=== PATIENT | female | born 1965 | race Caucasian/White ===

== ENCOUNTER → 2016-05-17 | Outpatient (CLI) | payer BC ==
[~2016-05-17] MED LIST: METOPROLOL SUC100 M1 PO
== END ==
LOC: LAB 07:56
DX: Z72.0 Tobacco use (principal); R53.83 Other fatigue; Z82.49 Family history of ischemic heart disease and other diseases of the circulatory system; Z83.3 Family history of diabetes mellitus; I10 Essential (primary) hypertension; R06.83 Snoring

== ENCOUNTER → 2016-08-15 | Outpatient (CLI) | payer BC ==
[~2016-08-15] VITALS: Ht 160 cm; Wt 80.9 kg
[2016-08-15 17:09] VITALS: BP 168/92
== END ==
LOC: AMSURD 16:50
DX: I10 Essential (primary) hypertension (principal)

== ENCOUNTER → 2017-04-30 | Outpatient (CLI) | payer BC ==
[2016-08-15 17:09] VITALS: BP 168/92
[2017-04-30 15:50] LABS: BUN/CREATININE RATIO 17.9 (6.0-26.0); CALCIUM 9.2 mg/dL (8.4-10.2); POTASSIUM 4.6 mmol/L (3.6-5.0); TOTAL BILIRUBIN 0.4 mg/dL (0.2-1.3); TOTAL PROTEIN 6.8 g/dL (6.3-8.2)
== END ==
LOC: LAB 07:30
PROVIDERS: Family Medicine
DX: E78.1 Pure hyperglyceridemia (principal); I10 Essential (primary) hypertension; E55.9 Vitamin D deficiency, unspecified

== ENCOUNTER → 2018-11-12 | Outpatient (CLI) | payer BC ==
[2016-08-15 17:09] VITALS: BP 168/92
[2018-11-12 07:41] LABS: HEMATOCRIT 44.2 % (37.0-47.0); HEMOGLOBIN 14.6 g/dL (12.5-16.0); MEAN PLATELET VOLUME 9.1 fl (7.4-10.4); RED BLOOD COUNT 4.78 M/mm3 (4.10-5.30); RED CELL DISTRIBUTION WIDTH 12.4 % (11.5-14.5); WHITE BLOOD COUNT 6.4 K/mm3 (4.8-10.8)
[2018-11-12 07:51] LABS: ALBUMIN 4.1 g/dL (3.5-5.0); POTASSIUM 4.3 mmol/L (3.5-5.1)
[2018-11-12 07:52] LABS: CALCIUM 9.5 mg/dL (8.3-10.5)
[2018-11-12 07:53] LABS: TOTAL PROTEIN 7.8 g/dL (6.4-8.3)
[2018-11-12 07:55] LABS: TOTAL BILIRUBIN 0.4 mg/dL (0.2-1.2)
== END ==
LOC: LAB 07:30
PROVIDERS: Family Medicine
DX: Z13.1 Encounter for screening for diabetes mellitus (principal); I10 Essential (primary) hypertension; E78.1 Pure hyperglyceridemia; E55.9 Vitamin D deficiency, unspecified; R53.83 Other fatigue

== ENCOUNTER → 2019-09-18 | Outpatient (CLI) | payer BC ==
[2016-08-15 17:09] VITALS: BP 168/92
== END ==
LOC: LAB 11:50
DX: R05 Cough (principal); R50.9 Fever, unspecified; J02.9 Acute pharyngitis, unspecified; Z20.828 Contact with and (suspected) exposure to other viral communicable diseases

== ENCOUNTER → 2020-06-14 | Outpatient (CLI) | payer BC ==
[2016-08-15 17:09] VITALS: BP 168/92
[2020-06-14 08:08] LABS: ALBUMIN 4.3 g/dL (3.5-5.0); POTASSIUM 4.2 mmol/L (3.5-5.1)
[2020-06-14 08:09] LABS: CALCIUM 9.4 mg/dL (8.3-10.5)
[2020-06-14 08:10] LABS: TOTAL PROTEIN 7.3 g/dL (6.4-8.3)
[2020-06-14 08:12] LABS: TOTAL BILIRUBIN 0.5 mg/dL (0.2-1.2)
== END ==
LOC: LAB 07:44
PROVIDERS: Family Medicine
DX: I10 Essential (primary) hypertension (principal); E78.1 Pure hyperglyceridemia

== ENCOUNTER → 2020-06-16 | Outpatient (CLI) | payer BC ==
[2016-08-15 17:09] VITALS: BP 168/92
== END ==
LOC: LAB 16:47
DX: E55.9 Vitamin D deficiency, unspecified (principal); R73.01 Impaired fasting glucose

== ENCOUNTER → 2021-01-16 | Outpatient (CLI) | payer BC | LOC: LAB 07:30 | DX: R73.03 Prediabetes (principal) ==